=== PATIENT | female | born 1990 | race African-American/Black ===

== ENCOUNTER 2020-02-04 09:33 | Emergency (ER) | payer MEDICAID ==
[~2020-02-04] VITALS: Ht 157.5 cm; Wt 98.2 kg
--- NOTE | 2020-02-04 10:01 | NUR ---
PATIENT TAKEN TO ULTRASOUND.
[2020-02-04] MEDS ORDERED: ALBU0.63 NEB (10:32)
--- NOTE | 2020-02-04 10:32 | NUR ---
PATIENT BACK FROM ULTRASOUND. PATIENT COMES IN TODAY WITH C/O OF VAGINAL BLEEDING X1.5 WEEKS. PATIENT STATES HER LAST PERIOD WAS IN OCTOBER, IS UNSURE OF HOW MANY WEEKS SHE IS, THIS IS PATIENT'S FIRST . PATIENT HAS SOME CRAMPING ASSOCIATED WITH THE BLEEDING AND DESCRIBES THE BLEEDING MODERATE. PATIENT A&OX4, ACCOMPANIED BY SIGNIFICANT OTHER, NO OTHER COMPLAINTS AT THIS TIME. EDUCATED PATIENT ABOUT NEED FOR URINE SAMPLE.
[2020-02-04 10:49] LABS: BASOPHILS # (AUTO) 0.03 x10^3/uL (0-0.1); BASOPHILS % (AUTO) 1 % (0-1); EOSINOPHILS # (AUTO) 0.21 x10^3/uL (0-0.4); EOSINOPHILS % (AUTO) 3 % (1-7); LYMPHOCYTES # (AUTO) 2.95 x10^3/uL (1-3.4); LYMPHOCYTES % (AUTO) 41 % (22-44); MD NO; MEAN CORPUSCULAR HEMOGLOBIN 31.4 pg (27.0-34.8); MONOCYTES # (AUTO) 0.56 x10^3/uL (0.2-0.8); MONOCYTES % (AUTO) 8 % (2-9); NEUTROPHILS # (AUTO) 3.39 x10^3/uL (1.8-6.8); NEUTROPHILS % (AUTO) 48 % (42-75); PLATELET COUNT 238 x10^3/uL (130-400); RED BLOOD COUNT 4.03 x10^6/uL (3.82-5.3); RED CELL DISTRIBUTION WIDTH 12.8 % (9.6-15.2)
--- NOTE | 2020-02-04 10:56 | NUR ---
PATIENT PROVIDED WATER, UNABLE TO URINATE AT THIS TIME.
[2020-02-04 11:05] VITALS: BP 104/65
--- NOTE | 2020-02-04 11:18 | NUR ---
URINE SAMPLE SENT TO LAB.
[2020-02-04 11:28] LABS: MICROSCOPIC AUTO
--- NOTE | 2020-02-04 12:23 | NUR ---
Patient and significant other given discharge instructions and they have confirmed that they understand the instructions. Patient ambulatory with steady gait.
== END 2020-02-04 12:26 | disposition home or self-care (01) ==
LOC: ED 12:00
DX: O20.0 Threatened abortion (principal); O23.11 Infections of bladder in pregnancy, first trimester; Z3A.09 9 weeks gestation of pregnancy
CPT/HCPCS: 36415; 76801; 81001; 84702; 85025; 86901; 87086; 99284